=== PATIENT | male | born 1940 | race Caucasian/White ===

== ENCOUNTER 2017-01-19 03:01 | Day surgery (SDC) | payer MEDICARE ==
[2017-01-19] VITALS (8 sets, daily range): BP systolic 116–142; BP diastolic 73–102; PULSE 62–97; RESP 22; O2SAT 92–98
[~2017-01-19] VITALS: Ht 162.6 cm; Wt 72.7 kg
[~2017-01-19 03:01] MED LIST: ASCO-294 PO; DILT180C66 PO; LOSA50TA37 PO; MULT1CAP33 PO; OMEP40CA36 PO; PROP150T PO; PRV40T PO; VITA400C19 PO; WARF2.5T PO; WARF5TAB7 PO
[2017-01-19 07:32] LABS: BASOPHILS % (AUTO) 0.3 % (0-3); EOSINOPHILS % (AUTO) 3.7 % (0-5); MONOCYTES % (AUTO) 9.6 % (4-12); Mean Corpuscular Volume 95.6 fL (81-100); Platelet Count 219 bil/L (150-400)
[2017-01-19 07:45] LABS: INR 2.81 ratio
[2017-01-19] MEDS ORDERED: Methohexital 10 mg/mL 50 mL Inj ONE (07:47)
--- NOTE | 2017-01-19 09:37 | NUR ---
KIRILL cardioversion Pt had stable recovery post cardioversion, VSS and WNL on RA at time of discharge. Pt and stated verbal understanding of discharge instructions regarding use of home medications, signs of worsening condition and follow up appointments. Pt and left with personal belongings, discharge paperwork, IV dc'd intact at approximately 0925.
--- NOTE | 2017-01-19 11:55 | PROCED ---
[address] [address] PROCEDURE NOTE PATIENT: ROCIO WOOD : 1940 MR#: [id number] ADMIT: 01/19/2017 JOB ID: [id number] DATE OF SERVICE: 01/19/2017 POSTOPERATIVE DIAGNOSIS(ES): Sinus rhythm. PREOPERATIVE DIAGNOSIS(ES): Atrial fibrillation. SURGEON: Ghassan Wolf MD, electrophysiology. PROCEDURE PERFORMED: Direct current cardioversion. SEDATION: Versed 1 mg and Brevital 35 mg utilized for appropriate level of sedation. INDICATION: The patient is a pleasant 76-year-old man with recurrent atrial fibrillation, status post previous ablation many years ago. He had recurrence of atrial fibrillation and after a discussion of the risks and benefits of cardioversion and confirmation of adequate anticoagulation opted to proceed. PROCEDURAL DESCRIPTION: Following informed consent, the patient was taken to the procedure suite in a fasting state, where he was prepped and draped in the usual sterile fashion. He had defibrillator patches placed in the anterior and posterior positions just to the left of midline. After adequate sedation, a 200 joule biphasic synchronized shock was used to convert him to sinus rhythm. He will be allowed to recover and discharge home. COMPLICATIONS: None. BLOOD LOSS: None applicable. IMPRESSION: Successful direct current cardioversion. PLAN: 1. Recover discharge from . 2. Continue current medication regimen including warfarin. 3. Followup with To Bhakta PA-C, in clinic in four weeks. IGhassan MD, Electrophysiology, was present for, supervised/performed all aspects of this procedure.
== END 2017-01-19 23:59 | disposition home or self-care (01) ==
LOC: SOUO 03:01 → EDSTATUS 13:02 → SOUO 23:59
PROVIDERS: ATTEND Internal Medicine Cardiovascular Disease
DX: I48.0 Paroxysmal atrial fibrillation (principal); I10 Essential (primary) hypertension; E78.5 Hyperlipidemia, unspecified; Z79.01 Long term (current) use of anticoagulants; Z79.899 Other long term (current) drug therapy; Z98.890 Other specified postprocedural states
CPT/HCPCS: 36415; 80048; 85025; 85610; 92960; 93005; 94799; 99152; J2250